=== PATIENT | male | born 1945 | race Caucasian/White ===

== ENCOUNTER → 2019-09-05 14:51 | Outpatient (CLI) | payer MEDICARE, OTHER, SELFPAY ==
[2019-09-05 16:14] LABS: Add Manual Diff / Slide Review NO; Basophils Absolute Auto 200 /uL (0-100); Basophils Percent Auto 2.1 % (0-2); Eosinophils Absolute Auto 300 /uL (0-450); Eosinophils Percent Auto 3.5 % (2-4); Hematocrit 30.9 % (41-53); Hemoglobin 10.6 g/dL (13.5-17.5); Lymphocytes Absolute Auto 2900 /uL (1100-4500); Lymphocytes Percent Auto 29.9 % (25-40); Mean Corpuscular HGB Conc 34.1 % (30-36); Mean Corpuscular Hemoglobin 30.5 PG (26-34); Mean Corpuscular Volume 89.3 fL (80-100); Monocytes Absolute Auto 1100 /uL (0-900); Neutrophils Absolute Auto 5100 /uL (1500-7000); Neutrophils Percent Auto 53.5 % (50-75); Platelet Count 433 X10^3/uL (150-400); Red Blood Cell Count 3.46 X10^6/uL (4.5-5.9); Red Cell Distribution Width 12.9 % (11.6-14.8); White Blood Cell Count 9.6 X10^3/uL (4.5-11.0)
[2019-09-05 16:48] LABS: HEMOLYSIS < 15 (0-50); Iron 71 ug/dL (49-181)
[2019-09-05 17:01] LABS: Percent Iron Saturation 21 % (20-50); Total Iron Binding Capacity 334 ug/dL (261-462); Transferrin 265 mg/dL (206-381)
== END ==
PROVIDERS: PCP Internal Medicine; Referring Provider Internal Medicine; Visit Provider Internal Medicine
DX: N17.9 Acute kidney failure, unspecified (principal); D64.9 Anemia, unspecified
CPT/HCPCS: 36415; 83540; 83550; 85025

== ENCOUNTER → 2020-05-09 07:52 | Outpatient (CLI) | payer MEDICARE, OTHER, SELFPAY ==
--- NOTE | 2020-05-09 | DI.ECHO.S_ITS ---
[facility]---------+ [facility] +---------+ : : [address] : [place] : : : : [id number] : : : : Phone: [phone]---------+ Echocardiogram Report + + :Name: CIRA ROBERTS Study Date: 05/09/2020 Height: 72 in : :[facility] Weight: 286 lb : : Gender: Male BSA: 2.5 m2 : :: 1945 Age: 75 yrs BP: 140/60 mmHg: :Reason For Study: SYSTOLIC CHF : : Performed By: Edgardo Rankin : :Referring: ALEXANDRIA NICK : + + Interpretation Summary The ejection fraction is estimated to be 50-55%. The aortic valve is slightly calcified. The ascending aorta is mildly enlarged. Compared to the prior echo report on 2018, there is no significant change. Procedure: A two-dimensional transthoracic echocardiogram with color flow and Doppler was performed. The study quality was technically adequate. Comparison is made with the echocardiogram of 10/15/17. The suprasternal notch views were difficult to obtain and are suboptimal in quality. The patient was in normal sinus rhythm during the exam. Left Ventricle: The left ventricle is normal in size. There is normal left ventricular wall thickness. The ejection fraction is estimated to be 50-55%. Left ventricular systolic function is low normal. There are no focal wall motion abnormalities. Right Ventricle: The right ventricle is normal in size and function. Atria: The left atrium is mildly dilated. The right atrium is moderately dilated. There is no Doppler evidence for an atrial septal defect. Mitral Valve: The mitral valve is normal in structure and function. There is no mitral regurgitation noted. Aortic Valve: The aortic valve is trileaflet. The aortic valve is slightly calcified. The aortic valve opens well. There is no hemodynamically significant valvular aortic stenosis. No aortic regurgitation is present. Tricuspid Valve: The tricuspid valve is normal in structure and function. There is trace tricuspid regurgitation. Pulmonary artery pressures cannot be estimated because of the lack of a measurable TR jet velocity. Pulmonic Valve: The pulmonic valve is not well visualized. There is mild pulmonic regurgitation. Great Vessels: The aortic root is normal size. The ascending aorta is mildly enlarged. The pulmonary artery is normal size. The IVC is of normal diameter and collapses greater than 50% with a sniff. This suggests a low right atrial pressure of 3 mm Hg. Pericardium/ Pleura There is no pericardial effusion. There is no pleural effusion. MMode/2D Measurements & Calculations LVIDd: 5.6 cm LVOT diam: 2.6 cm LVIDs: 4.2 cm Ao root diam: 4.0 cm FS: 26.1 % asc Aorta Diam: 3.6 cm EPSS: 1.3 cm IVSd: 1.2 cm LVPWd: 0.97 cm LV wen. diameter/BSA (cm/m^2): 2.3 LV sys. diameter/BSA (cm/m^2): 1.7 LA dimension: 4.1 cm RA long axis: 5.2 cm LA A2 area: 25.4 cm2 RA area: 25.5 cm2 LA A4 area: 21.5 cm2 RA vol: 105.3 ml LA length (vol): 5.3 cm RA : 42.4 ml/m2 LA vol: 87.8 ml IVC diam: 0.80 cm LA vol index: 35.4 ml/m2 RVD1 (basal): 4.4 cm RVD2 (mid): 4.1 cm TAPSE: 2.4 cm Doppler Measurements & Calculations Ao V2 max: 140.4 cm/sec LVOT Max Joe: 99.1 cm/sec Ao V2 mean: 110.1 cm/sec LV V1 max P.9 mmHg Ao max P.9 mmHg LV V1 VTI: 23.0 cm Ao mean P.1 mmHg GODWIN(I,D): 3.9 cm2 Ao V2 VTI: 32.3 cm GODWIN(V,D): 3.9 cm2 sev ratio: 0.71 GODWIN indexed to BSA (cm^2/m^2): 1.6 MV E max joe: 54.1 cm/sec PA V2 max: 96.5 cm/sec MV A max joe: 85.8 cm/sec PA V2 mean: 69.5 cm/sec MV E/A: 0.63 PA mean P.1 mmHg Med Peak E' Joe: 4.4 cm/sec PA pr(Accel): 51.6 mmHg E/E' med: 12.2 Lat Peak E' Joe: 5.4 cm/sec E/E' lat: 10.1 E/e' average: 11.1 MV dec time: 0.31 sec SV(LVOT): 126.4 ml Reading Physician:01:20 PM
== END ==
PROVIDERS: PCP Internal Medicine; Referring Provider Internal Medicine; Visit Provider Internal Medicine
DX: I37.1 Nonrheumatic pulmonary valve insufficiency (principal); I77.89 Other specified disorders of arteries and arterioles; I50.22 Chronic systolic (congestive) heart failure; I10 Essential (primary) hypertension
CPT/HCPCS: 36415; 80048; 83880; 93306

== ENCOUNTER → 2020-05-09 08:59 | Outpatient (CLI) | payer MEDICARE, OTHER, SELFPAY ==
[2020-05-09 10:11] LABS: Blood Urea Nitrogen 27 mg/dL (9-20); Calcium 9.6 mg/dL (8.4-10.2); Carbon Dioxide 28 mmol/L (22-32); Chloride 107 mmol/L (98-107); Estimated Glomerular Filt Rate 48.7 mL/min (>60); Glucose 83 mg/dL (80-110); HEMOLYSIS < 15 (0-50); Potassium 4.6 mmol/L (3.4-5.1); Sodium 142 mmol/L (137-145)
[2020-05-09 10:15] LABS: NT-proBNP (BNP-Adult 18+) 90 pg/mL (<125)
== END ==
PROVIDERS: PCP Internal Medicine; Referring Provider Internal Medicine; Visit Provider Internal Medicine
DX: I50.22 Chronic systolic (congestive) heart failure (principal); I10 Essential (primary) hypertension
CPT/HCPCS: 36415; 80048; 83880

== ENCOUNTER → 2021-01-11 10:48 | Outpatient (CLI) | payer MEDICARE, OTHER, SELFPAY ==
[2021-01-11 12:31] LABS: COVID19 -Nasal RAPID Negative (Negative)
== END ==
PROVIDERS: PCP Internal Medicine; Referring Provider Internal Medicine; Visit Provider Internal Medicine
DX: R06.00 Dyspnea, unspecified (principal); D64.9 Anemia, unspecified; Z20.822 Contact with and (suspected) exposure to COVID-19
CPT/HCPCS: 87635; C9803

== ENCOUNTER → 2021-01-11 10:56 | Outpatient (CLI) | payer MEDICARE, OTHER, SELFPAY ==
--- NOTE | 2021-01-11 | DI.RAD.S_ITS ---
PROCEDURE: XR CHEST 2V INDICATIONS: DYSPNEA ON EXERTION TECHNIQUE: 2 views of the chest were acquired. COMPARISON: [facility], CR, XR CHEST 1 VIEW, 08/25/2019, 11:47. FINDINGS: Surgical changes and devices: None. Lungs and pleura: Scattered subsegmental scarring and/or atelectasis. No acute consolidation. No pleural effusions or pneumothorax. Mediastinum: Mediastinal contours are normal. Heart size is normal. Bones and chest wall: No suspicious bony abnormalities. Soft tissues appear unremarkable. IMPRESSION: No acute disease. Dictated by: Juan Jose Diaz M.D. on 01/11/2021 at 12:10 Approved by: Juan Jose Diaz M.D. on 01/11/2021 at 12:10
[2021-01-11 12:31] LABS: Add Manual Diff / Slide Review NO; Basophils Absolute Auto 100 /uL (0-100); Basophils Percent Auto 1.6 % (0-2); Eosinophils Absolute Auto 200 /uL (0-450); Eosinophils Percent Auto 2.1 % (2-4); Hemoglobin 12.4 g/dL (13.5-17.5); Lymphocytes Absolute Auto 2500 /uL (1100-4500); Lymphocytes Percent Auto 31.8 % (25-40); Mean Corpuscular HGB Conc 33.5 % (30-36); Mean Corpuscular Hemoglobin 30.1 PG (26-34); Mean Corpuscular Volume 89.9 fL (80-100); Monocytes Absolute Auto 900 /uL (0-900); Monocytes Percent Auto 11.3 % (3-14); Neutrophils Absolute Auto 4200 /uL (1500-7000); Neutrophils Percent Auto 53.2 % (50-75); Platelet Count 284 X10^3/uL (150-400); Red Blood Cell Count 4.12 X10^6/uL (4.5-5.9); Red Cell Distribution Width 13.6 % (11.6-14.8); White Blood Cell Count 7.8 X10^3/uL (4.5-11.0)
--- NOTE | 2021-01-18 08:35 | PM.PFT.1 ---
Pulmonary Function Test Referral & Results Date Patient Seen: 01/11/21 Requesting provider: Everton Herndon Results: The spirometry demonstrates an FVC of 3.99 L which is 86% of predicted. The FEV1 was measured at 2.12 L which is 63% of predicted. The FEV1/FVC ratio was 53 which is 72% of predicted. Following the administration of bronchodilator there was 17% improvement in FEV1 and a 64% improvement in FEF 25-75%. Lung volumes show an SVC of 4.31 L which is 89% of predicted. The diffusing capacity was measured at 23.59 which is 67% of predicted. 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 This suggest disease at the capillary alveolar level
== END ==
PROVIDERS: PCP Internal Medicine; Referring Provider Internal Medicine; Visit Provider Internal Medicine
DX: R06.00 Dyspnea, unspecified (principal); I10 Essential (primary) hypertension; R06.09 Other forms of dyspnea; D64.9 Anemia, unspecified; Z20.822 Contact with and (suspected) exposure to COVID-19; Z87.891 Personal history of nicotine dependence; J98.8 Other specified respiratory disorders
CPT/HCPCS: 36415; 71046; 85025; 87635; 94060; 94726; 94729; C9803